=== PATIENT | female | born 1990 | race Caucasian/White ===

== ENCOUNTER 2019-05-24 18:53 | Emergency (ER) | payer SELFPAY ==
[~2019-05-24] VITALS: Ht 165.1 cm; Wt 72.7 kg
[2019-05-24 19:06] VITALS: Ht 165.1 cm; Wt 72.7 kg
[2019-05-24] MEDS ORDERED: oral contraceptive (19:07)
[2019-05-24 19:35] LABS: BASOPHILS 0.7 % (0-2); EOSINOPHILS 7.1 % (0-7); HEMOGLOBIN 14.8 g/dL (12-16); LYMPHOCYTES 31.4 % (15-50); MCH 30.3 pg (26.0-34.0); MCHC 36.1 g/dL (31.0-37.0); MEAN PLATELET VOLUME 10.4 fL (7.4-10.4); MONOCYTES 6.9 % (2-11); NEUTROPHILS 53.9 % (40-80); PLATELET COUNT 157 10x3/uL (130-400); RBC 4.88 10x6/uL (4.00-5.40); RDW 12.4 % (11.5-14.5); WBC 4.5 10x3/uL (4.8-10.8)
[2019-05-24 19:48] LABS: ALBUMIN 3.6 g/dL (3.4-5.0); ALKALINE PHOSPHATASE 105 U/L (46-116); ALT (SGPT) 41 U/L (10-68); BILIRUBIN - TOTAL 0.46 mg/dL (0.2-1.3); CALC OSMOLALITY 279 mosm/kg (275-300); CARBON DIOXIDE 29.7 mmol/L (21.0-32.0); CHLORIDE - SERUM 106 mmol/L (98-107); CREATININE - SERUM 0.8 mg/dL (0.6-1.3); GLUCOSE 87 mg/dL (74-106); POTASSIUM - SERUM 3.7 mmol/L (3.5-5.1); PROTEIN - SERUM 7.5 g/dL (6.4-8.2); SODIUM 142 mmol/L (136-145); UREA NITROGEN 8 mg/dL (7-18); eGFR NON AFRICAN AMERICAN 90 mL/min (90-120)
[2019-05-24] MEDS ORDERED: VOLTAREN75 MG PO (20:03)
[2019-05-24] MEDS ORDERED: OMEPRAZOLE20 M1 PO (20:03)
[2019-05-24 20:44] VITALS: BP 123/68
== END 2019-05-24 20:44 | disposition home or self-care (01) ==
LOC: D.ER 18:53
PROVIDERS: Family Medicine
DX: M25.562 Pain in left knee (principal); M25.561 Pain in right knee; R60.9 Edema, unspecified; F17.210 Nicotine dependence, cigarettes, uncomplicated